=== PATIENT | female | born 1955 | race African-American/Black ===

== ENCOUNTER → 2024-02-27 | Outpatient (REF) | payer MEDICARE | LOC: CT 07:50 | PROVIDERS: ATTEND Internal Medicine | DX: R91.8 Other nonspecific abnormal finding of lung field (principal) | CPT/HCPCS: 71250 ==

== ENCOUNTER → 2024-09-15 | Outpatient (REF) | payer MEDICARE | LOC: CT 10:53 | PROVIDERS: ATTEND Internal Medicine | DX: R91.1 Solitary pulmonary nodule (principal) | CPT/HCPCS: 71250 ==